=== PATIENT | male | born 1990 | race Hispanic/Latino ===

== ENCOUNTER 2022-08-08 18:11 | Emergency (ER) | payer SELFPAY ==
[~2022-08-08] VITALS: Ht 185.4 cm; Wt 85.9 kg
[2022-08-08 18:25] VITALS: BP 135/86
[2022-08-08 18:30] VITALS: BP 136/79
[2022-08-08 18:45] VITALS: BP 133/76
[2022-08-08 19:01] LABS: BASO% 0.3 % (0-3); EOS% 1.6 % (0-8); HEMATOCRIT 43.9 % (39.0-50.0); IMMATURE GRANULOCYTES 0.3 % (0.0-5.0); LYMPH% 29.1 % (15-41); MEAN CELL VOLUME 86.1 fL CALC (80.0-100.0); MEAN CORPUSCULAR HGB 29.4 pG CALC (26.0-32.0); MEAN CORPUSCULAR HGB CONC 34.2 g/dL CAL (32.0-36.0); MONO% 8.6 % (2-13); NEUT# 4.43 thou/uL (1.82-7.42); NEUT% 60.1 % (42-76); RED BLOOD COUNT 5.1 mill/uL (4.70-6.10); RED CELL DISTRI WIDTH 12.2 % (11.5-15.5)
[2022-08-08 19:14] LABS: ALBUMIN 4.8 g/dL (3.2-5.0); ALKALINE PHOSPHATASE 81 u/l (38-126); ANION GAP 12 (6-22 (CALC)); BILIRUBIN, TOTAL 0.4 mg/dL (0.0-1.4); BUN 27 mg/dL (9-20); BUN/CREATININE RATIO 22 (12-20 (CALC)); CARBON DIOXIDE 26 mmol/l (22-30); CHLORIDE 105 mmol/l (95-108); CREATININE 1.2 mg/dL (0.7-1.3); GFR FOR AFR.AMER. > 60 ML/MIN (>=60 (CALC)); GFR OTHER RACES > 60 ML/MIN (>=60 (CALC)); LIPASE 43 u/l (23-300); POTASSIUM 3.7 mmol/l (3.5-5.1); SGOT/AST 34 u/l (17-59); SODIUM 139 mmol/l (137-146); TOTAL PROTEIN 8.1 g/dL (6.3-8.2)
[2022-08-08] MEDS ORDERED: IBUPROFEN600 MG PO (21:35)
[2022-08-08] MEDS ORDERED: FLEXERIL5 M1 PO (21:35)
[2022-08-08 23:25] VITALS: BP 133/76
== END 2022-08-08 23:27 | disposition home or self-care (01) | DRG 556 ==
LOC: ED 18:11
PROVIDERS: Family Medicine
DX: M25.551 Pain in right hip (principal); M25.572 Pain in left ankle and joints of left foot; M25.571 Pain in right ankle and joints of right foot; M54.9 Dorsalgia, unspecified; W18.30XA Fall on same level, unspecified, initial encounter
CPT/HCPCS: Q9967